=== PATIENT | female | born 1985 | race Caucasian/White ===

== ENCOUNTER 2017-04-26 10:16 | Emergency (ER) | payer OTHER ==
[2017-04-26] MEDS ORDERED: TORAdol 30 mg Injection IV ONE (10:26)
[2017-04-26] MEDS ORDERED: Sodium Chloride 0.9% 1000 ML 1,000 ML IV STA (10:26)
[2017-04-26] MEDS ORDERED: Hydromorphone 1 mg/ml Ampule IV ONE (10:26)
[2017-04-26] MEDS ORDERED: Phenergan 25 MG INJ IV ONE (10:26)
[2017-04-26] MEDS ORDERED: Flomax 0.4 MG PO STA (10:28)
--- NOTE | 2017-04-26 10:31 | ERPHSYRPT ---
- History of Present Illness Time Seen by Provider: 04/26/17 10:25 Historian: patient Exam Limitations: no limitations Physician History: The patient is a 31-year-old female with her complaining of a sudden onset of right flank pain wrapping around to her right abdomen and right groin that began about an hour ago. Last night she had a dull ache in her right lower back for which she took ibuprofen. That's back pain became much worse suddenly this morning. She was nauseated. She denies vomiting or diarrhea. She had a kidney stone one time on her left side. Her past medical history is significant for kidney stone, tubal ligation, and ADD. Timing/Duration: hour(s) (1) Activities at Onset: none Quality: sharpness, stabbing Abdominal Pain Onset Location: flank (right) Pain Radiation: RLQ, groin Severity of Pain-Max: severe Severity of Pain-Current: severe Modifying Factors: Improves With: nothing Associated Symptoms: nausea Previous symptoms: same symptoms as today Allergies/Adverse Reactions: No Known Drug Allergies Allergy (Unverified 04/26/17 10:32) Home Medications: Dextroamphetamine/Amphetamine [Adderall 30 mg Tablet] 30 mg PO DAILY 04/26/17 [ History] - Review of Systems Constitutional: No Fever, No Chills Eyes: No Symptoms Ears, Nose, & Throat: No Symptoms Respiratory: No Cough, No Dyspnea Cardiac: No Chest Pain, No Edema, No Syncope Abdominal/Gastrointestinal: Abdominal Pain, Nausea, No Vomiting, No Diarrhea Genitourinary Symptoms: No Dysuria Musculoskeletal: No Back Pain, No Neck Pain Skin: No Rash Neurological: No Dizziness, No Focal Weakness, No Sensory Changes Psychological: No Symptoms Endocrine: No Symptoms Hematologic/Lymphatic: No Symptoms Immunological/Allergic: No Symptoms All Other Systems: Reviewed and Negative - Nursing Vital Signs Nursing Vital Signs: Initial Vital Signs Temperature 97.8 F 04/26/17 10:21 Pulse Rate 96 H 04/26/17 10:21 Respiratory Rate 22 04/26/17 10:21 Blood Pressure 161/104 04/26/17 10:21 O2 Sat by Pulse Oximetry 98 04/26/17 10:21 Pain Scale Pain Intensity 6 - Physical Exam General Appearance: severe distress, alert, anxiety Eye Exam: PERRL/EOMI, eyes nml inspection Ears, Nose, Throat Exam: normal ENT inspection, pharynx normal, moist mucous membranes Neck Exam: normal inspection, non-tender, supple, full range of motion Respiratory Exam: normal breath sounds, lungs clear, No respiratory distress Cardiovascular Exam: regular rate/rhythm, normal heart sounds Gastrointestinal/Abdomen Exam: tenderness (RLQ), other (right flank tenderness) Pelvic Exam: not done Rectal Exam: not done Back Exam: CVA tenderness (right) Extremity Exam: normal inspection, normal range of motion, pelvis stable Neurologic Exam: alert, oriented x 3, cooperative, normal mood/affect, nml cerebellar function, sensation nml, No motor deficits Skin Exam: normal color, warm, dry SpO2 Interpretation: normal - CT Exams Abdomen/Pelvis CT Interpretation: Tele-radiologist Report, Other (3 to 4 mm stone at right UVJ with moderate right hydroureter per Dr Bearden.) Ordered Tests: Active Orders 24 hr Category Date Time Status IV Insertion STAT Care 04/26/17 10:26 Active Strain Urine .as ordered Care 04/26/17 12:52 Active ABDOMEN AND PELVIS W/0 CONTRAS [CT] Stat Exams 04/26/17 12:17 Completed CBC W DIFF Stat Lab 04/26/17 10:45 Completed CMP Stat Lab 04/26/17 10:45 Completed HCG QUALITATIVE,SERUM Stat Lab 04/26/17 10:45 Completed LIPASE Stat Lab 04/26/17 10:45 Completed Lactic Acid Stat Lab 04/26/17 10:50 Completed UA W/RFX UR CULTURE Stat Lab 04/26/17 10:26 Completed Medication Summary Discontinued Medications Generic Name Dose Route Start Last Admin Trade Name Dinoq PRN Reason Stop Dose Admin Hydromorphone HCl 1 mg 04/26/17 10:26 04/26/17 10:45 Hydromorphone 1 Mg/Ml Ampule IV 04/26/17 10:27 1 mg STAT ONE Administration Hydromorphone HCl Confirm 04/26/17 10:37 Hydromorphone 1 Mg/Ml Ampule Administered 04/26/17 10:38 Dose 1 mg .ROUTE .STK-MED ONE Sodium Chloride 1,000 mls @ 999 mls/hr 04/26/17 10:26 04/26/17 10:44 Sodium Chloride 0.9% 1000 Ml IV 04/26/17 11:26 999 mls/hr .Q1H1M STA Administration Sodium Chloride Confirm 04/26/17 10:37 Sodium Chloride 0.9% 1000 Ml Administered 04/26/17 10:38 Dose 1,000 mls @ ud .ROUTE .STK-MED ONE Ketorolac Tromethamine 30 mg 04/26/17 10:26 04/26/17 10:44 Toradol 30 Mg Injection IV 04/26/17 10:27 30 mg STAT ONE Administration Ketorolac Tromethamine Confirm 04/26/17 10:36 Toradol 30 Mg Injection Administered 04/26/17 10:37 Dose 30 mg .ROUTE .STK-MED ONE Promethazine HCl 25 mg 04/26/17 10:26 04/26/17 10:44 Phenergan 25 Mg Inj IV 04/26/17 10:27 25 mg STAT ONE Administration Promethazine HCl Confirm 04/26/17 10:36 Phenergan 25 Mg Inj Administered 04/26/17 10:37 Dose 25 mg .ROUTE .STK-MED ONE Tamsulosin HCl 0.4 mg 04/26/17 10:28 04/26/17 10:45 Flomax 0.4 Mg PO 04/26/17 10:29 0.4 mg DAILY STA Administration Tamsulosin HCl Confirm 04/26/17 10:37 Flomax 0.4 Mg Administered 04/26/17 10:38 Dose 0.4 mg .ROUTE .[facility] ONE Lab/Rad Data: Laboratory Result Diagrams 04/26/17 10:45 04/26/17 10:45 Laboratory Results 04/26/17 04/26/17 04/26/17 Range/Units 10:50 10:45 10:45 WBC (4.0-10.5) K/mm3 RBC (4.1-5.4) M/mm3 Hgb (12.0-16.0) gm/dl Hct (35-47) % MCV (78-100) fl MCH (26-32) pg MCHC (32-36) g/dl RDW (11.5-14.0) % Plt Count (150-450) K/mm3 MPV (6-9.5) fl Gran % (36.0-66.0) % Lymphocytes % (24.0-44.0) % Monocytes % (0.0-12.0) % Eosinophils % (0.00-5.0) % Basophils % (0.0-0.4) % Basophils # (0-0.4) Sodium 138 (136-145) mEq/L Potassium 4.1 (3.5-5.1) mEq/L Chloride 104 (98-107) mEq/L Carbon Dioxide 22.8 (21-32) mEq/L Anion Gap 15.3 H (5-15) MEQ/L BUN 8 L (9-20) mg/dL Creatinine 0.92 (0.55-1.30) mg/dl Estimated GFR > 60 ML/MIN Glucose 106 (70-110) MG/DL Lactic Acid 1.3 (0.4-2.0) Calcium 8.7 (8.5-10.1) mg/dL Total Bilirubin 0.40 (0.2-1.0) mg/dL AST 17 (15-37) U/L ALT 22 (12-78) U/L Alkaline Phosphatase 50 (46-116) U/L Serum Total Protein 7.8 (6.4-8.2) gm/dL Albumin 4.0 (3.4-5.0) g/dL Lipase 106 (73-393) U/L Serum , Qual NEGATIVE (Negative) Ur Collection Type Urine Color (YELLOW) Urine Appearance (CLEAR) Urine pH (5-6) Ur Specific [place] (1.005-1.025) Urine Protein (Negative) Urine Ketones (NEGATIVE) Urine Blood (0-5) Dioni/ul Urine Nitrite (NEGATIVE) Urine Bilirubin (NEGATIVE) Urine Urobilinogen (0-1) mg/dL Ur Leukocyte Esterase (NEGATIVE) Urine Culture Reflexed (NO) Urine Glucose (NEGATIVE) mg/dL Specimen Received 04/26/17 04/26/17 Range/Units 10:45 10:26 WBC 7.4 (4.0-10.5) K/mm3 RBC 5.04 (4.1-5.4) M/mm3 Hgb 15.1 (12.0-16.0) gm/dl Hct 43.1 (35-47) % MCV 85.5 (78-100) fl MCH 30.0 (26-32) pg MCHC 35.0 (32-36) g/dl RDW 12.4 (11.5-14.0) % Plt Count 254 (150-450) K/mm3 MPV 9.4 (6-9.5) fl Gran % 61.6 (36.0-66.0) % Lymphocytes % 26.8 (24.0-44.0) % Monocytes % 8.2 (0.0-12.0) % Eosinophils % 3.1 (0.00-5.0) % Basophils % 0.3 (0.0-0.4) % Basophils # 0.02 (0-0.4) Sodium (136-145) mEq/L Potassium (3.5-5.1) mEq/L Chloride (98-107) mEq/L Carbon Dioxide (21-32) mEq/L Anion Gap (5-15) MEQ/L BUN (9-20) mg/dL Creatinine (0.55-1.30) mg/dl Estimated GFR ML/MIN Glucose (70-110) MG/DL Lactic Acid (0.4-2.0) Calcium (8.5-10.1) mg/dL Total Bilirubin (0.2-1.0) mg/dL AST (15-37) U/L ALT (12-78) U/L Alkaline Phosphatase (46-116) U/L Serum Total Protein (6.4-8.2) gm/dL Albumin (3.4-5.0) g/dL Lipase (73-393) U/L Serum , Qual (Negative) Ur Collection Type CLEAN CATCH Urine Color YELLOW (YELLOW) Urine Appearance CLEAR (CLEAR) Urine pH 7.0 (5-6) Ur Specific [place] 1.010 (1.005-1.025) Urine Protein NEGATIVE (Negative) Urine Ketones NEGATIVE (NEGATIVE) Urine Blood NEGATIVE (0-5) Dioni/ul Urine Nitrite NEGATIVE (NEGATIVE) Urine Bilirubin NEGATIVE (NEGATIVE) Urine Urobilinogen NORMAL (0-1) mg/dL Ur Leukocyte Esterase NEGATIVE (NEGATIVE) Urine Culture Reflexed NO (NO) Urine Glucose NEGATIVE (NEGATIVE) mg/dL Specimen Received 04/26/17 1035 - Progress Progress: improved Counseled pt/family regarding: lab results, diagnosis, need for follow-up, rad results - Departure Time of Disposition: 13:28 Departure Disposition: Home Clinical Impression: Kidney stone Condition: Stable Critical Care Time: No Referrals: TYRONE ELLIS [Primary Care Provider] - Additional Instructions: You have a small kidney stone on the right side that is just about ready to pass into your bladder. You were given Toradol 30 mg, Dilaudid 1 mg, Phenergan 25 mg, and fluids by IV and you were given Flomax 0.4 mg orally in the ER. Take naproxen 500 mg 2 times a day as needed. Strain your urine, collect the stone, and take it to your family physician for analysis. Follow-up as needed. Prescriptions: Naproxen 500 mg PO BID PRN #60 tablet.
[2017-04-26] MEDS ORDERED: Phenergan 25 MG INJ ONE (10:36)
[2017-04-26] MEDS ORDERED: TORAdol 30 mg Injection ONE (10:36)
[2017-04-26] MEDS ORDERED: Hydromorphone 1 mg/ml Ampule ONE (10:37)
[2017-04-26] MEDS ORDERED: Flomax 0.4 MG ONE (10:37)
[2017-04-26] MEDS ORDERED: Sodium Chloride 0.9% 1000 ML 1,000 ML ONE (10:37)
[2017-04-26 10:55] LABS: BASOPHIL % 0.3 % (0.0-0.4); Basophil (Absolute #) 0.02 (0-0.4); Eosinophil % 3.1 % (0.00-5.0); Eosinophil (Absolute #) 0.23 (0-0.5); Granulocyte Absolute (ANC) 4.56 (1.4-6.9); Granulocytes % 61.6 % (36.0-66.0); Hematocrit 43.1 % (35-47); Hemoglobin 15.1 gm/dl (12.0-16.0); Lymphocyte (Absolute #) 1.98 (1.0-4.6); Lymphocytes % 26.8 % (24.0-44.0); Mean Cell Volume 85.5 fl (78-100); Mean Platelet Volume 9.4 fl (6-9.5); Monocyte (Absolute #) 0.61 (0.0-1.3); Monocytes % 8.2 % (0.0-12.0); Platelet Count 254 K/mm3 (150-450); Red Blood Count 5.04 M/mm3 (4.1-5.4); Red Cell Distribution Width 12.4 % (11.5-14.0); White Blood Count 7.4 K/mm3 (4.0-10.5)
[2017-04-26 10:55] LABS: Appearance CLEAR (CLEAR); Bilirubin NEGATIVE (NEGATIVE); Blood NEGATIVE Ery/ul (0-5); Glucose NEGATIVE (NEGATIVE); Ketones NEGATIVE (NEGATIVE); Leukocyte Esterase NEGATIVE (NEGATIVE); Nitrite NEGATIVE (NEGATIVE); Protein,Urine Dip NEGATIVE (Negative); Urobilinogen NORMAL mg/dL (0-1)
[2017-04-26 11:17] LABS: ALKALINE PHOSPHATASE 50 U/L (46-116); ANION GAP 15.3 MEQ/L (5-15); BLOOD UREA NITROGEN 8 mg/dL (9-20); CHLORIDE 104 mEq/L (98-107); Calcium 8.7 mg/dL (8.5-10.1); Carbon Dioxide 22.8 mEq/L (21-32); Creatinine 1 0.92 mg/dl (0.55-1.30); EST GLOMERULAR FILTRATION RATE > 60 ML/MIN; Glucose 106 MG/DL (70-110); LIPASE 106 U/L (73-393); Potassium 4.1 mEq/L (3.5-5.1); SGOT/AST 17 U/L (15-37); SGPT/ALT 22 U/L (12-78); SODIUM 138 mEq/L (136-145); Total Protein 7.8 gm/dL (6.4-8.2)
--- NOTE | 2017-04-26 12:27 | XRAY ---
Indication: Right flank pain. History of stones. Multiple contiguous axial images obtained through the abdomen and pelvis without contrast using renal stone protocol. Comparison: None Lung bases are clear. Heart is not enlarged. There is a 3-4 mm right UVJ calculus. Proximal right ureter is prominent up to 6 mm along with mild/moderate hydronephrosis consistent with obstructive uropathy. No perinephric fluid. A few calcified splenic granulomas. Noncontrasted stomach and bowel loops appear nonobstructed. There is mild diffuse scattered colonic fecal debris throughout. Normal appendix. Small cul-de-sac fluid presumed from rupture/leaking cyst. No free air. Remaining liver, gallbladder, pancreas, spleen, adrenal glands, left kidney, left ureter, bladder, uterus, and aorta appear unremarkable for noncontrast exam. Osseous structures intact. Impression: 1. 3-4 mm right UVJ calculus producing partial obstruction. 2. Small cul-de-sac fluid presumed physiologic from rupture/leaking cyst. 3. Mild fecal stasis without obstruction. CT DI 18.31
[2017-04-26 13:15] VITALS: PULSE 78
[2017-04-26 13:40] VITALS: BP 153/83; O2SAT 97
== END 2017-04-26 13:39 | disposition home or self-care (01) ==
LOC: ED 10:16
DX: N20.0 Calculus of kidney (principal)
CPT/HCPCS: 36000; 36415; 74176; 80053; 81002; 83605; 83690; 84703; 85025; 96360; 96372; 96374; 96375; 96376; 99284; J1170; J1885; J2550; A9270-GY

== ENCOUNTER 2024-07-04 16:14 | Emergency (ER) | payer OTHER ==
[2024-07-04 16:30] VITALS: RESP 18; TEMP 98.5
[2024-07-04 17:32] LABS: Basophil (Absolute #) 0.08 x10^3/uL (0.01-0.08); Eosinophil % 4.6 % (0.7-5.8); Eosinophil (Absolute #) 0.39 x10^3/uL (0.04-0.36); Hematocrit 45.1 % (34.1-44.9); Hemoglobin 15.7 g/dL (11.2-15.7); IMMATURE GRAN # 0.02 x10^3u/L (0.001-0.031); IMMATURE GRAN % 0.2 % (0.001-0.429); Lymphocyte (Absolute #) 2.16 x10^3/uL (1.18-3.74); Lymphocytes % 25.7 % (19.3-51.7); Mean Cell Volume 88.3 fL (79.4-94.8); Mean Corpuscular Hemoglobin 30.7 pg (25.6-32.2); Mean Corpuscular Hgb Concent. 34.8 g/dL (32.2-35.5); Mean Platelet Volume 10.8 fL (9.4-12.3); Monocyte (Absolute #) 0.76 x10^3/uL (0.24-0.86); Neutrophil % 59.5 % (34.0-71.1); Platelet Count 286 x10^3/uL (182-369); Red Blood Count 5.11 x10^6/uL (3.93-5.22); Red Cell Distribution Width 11.9 % (11.7-14.4); White Blood Count 8.4 x10^3/uL (3.98-10.04)
[2024-07-04] MEDS ORDERED: Sodium Chloride 0.9% 1000 ML 1,000 ML ONE (17:37)
[2024-07-04] MEDS ORDERED: solu-MEDROL ONE (17:37)
[2024-07-04] MEDS ORDERED: Sterile H2O 10 ml IJ ONE (17:37)
[2024-07-04] MEDS: solu-MEDROL 125 MG, Sterile H2O 10 ml 2 ML IV ONE (17:39)
[2024-07-04] MEDS: Sodium Chloride 0.9% 1000 ML 1,000 ML IV STA (17:39)
[2024-07-04 17:42] LABS: Appearance Clear (Clear); Bacteria None Seen /HPF (None Seen); Bilirubin Negative (Negative); Blood Negative (Negative); Epithelial Cells Few /HPF (None Seen); Glucose, Urine Negative (Negative); Hyaline Casts NONE SEEN /LPF (0-2); Ketones Negative (Negative); Leukocyte Esterase Negative (Negative); Nitrite Negative (Negative); Protein,Urine Dip Negative (Negative); WBC 0-2 /HPF (0-5)
[2024-07-04 17:53] VITALS: PULSE 68
[2024-07-04 18:08] LABS: ALBUMIN 4.3 g/dL (3.5-5.0); ANION GAP 14.5 MEQ/L (5-15); BILIRUBIN,TOTAL 0.3 mg/dL (0.2-1.3); Calcium 8.8 mg/dL (8.4-10.2); Creatinine 1 0.7 mg/dL (0.52-1.04); EST GLOMERULAR FILTRATION RATE 113.5 ML/MIN; Potassium 4.1 mmol/L (3.5-5.1); Total Protein 7.1 g/dL (6.3-8.2)
[2024-07-04 18:09] LABS: INR 0.91 (0.8-3.0); PTT 26.4 SECONDS (25.1-36.5)
[2024-07-04 18:11] VITALS: BP 135/100; O2SAT 97
[2024-07-04 18:30] LABS: HCG URINE TEST NEGATIVE (NEGATIVE)
--- NOTE | 2024-07-04 18:36 | ERPHSYRPT ---
- History of Present Illness Time Seen by Provider: 07/04/24 16:27 Source: patient Exam Limitations: no limitations Patient Subjective Stated Complaint: Pt states "I was bitten by something three days ago and Dr. Ochoa thinks it was a brown recluse nest. I have spots on my left hand, my left arm, my right eye. I am on antibiotics for that but today I am so tired." Triage Nursing Assessment: Pt presented alert and oriented X3, skin pwd. Pt ambu lates with an upright steady gait, able to speak in clear full sentences. Pt has swelling noted to left hand fourth digit, swelling noted to left upper arm, swelling noted to right lateral eye. Physician History: 38 years old female presented in the ER with complains of generalized weakness fatigue and tiredness since morning. Patient reports she was possibly bit by a spider 2 days ago in the left hand third digit, left arm, was evaluated by primary care, started on Augmentin since yesterday. Today she noticed a small area of redness in the right upper eyelid area. No fever or chills but achy feeling all over which patient describes as a flulike symptoms. Patient does not want to be checked for influenza. Denies any chest pain palpitations or shortness of breath. No abdominal pain nausea or vomiting/diarrhea. Denies any focal numbness tingling or weakness. No muscle cramping. Patient is very anxious during the whole interview. Allergies/Adverse Reactions: No Known Drug Allergies Allergy (Unverified 04/26/17 10:32) Home Medications: Amox Tr/Potass Clav. 500 mg [Augmentin 500-125 Tablet] 500 mg PO TID 07/04/24 [History] Dextroamphetamine/Amphetamine [Adderall Xr 20 mg Capsule] 20 mg PO DAILY 07/04/24 [History] Enalapril Maleate [Vasotec] 5 mg PO DAILY 07/04/24 [History] Hx Tetanus, Diphtheria Vaccination/Date Given: No Hx Influenza Vaccination/Date Given: No Hx Pneumococcal Vaccination/Date Given: No Immunizations Up to Date: No Travel Risk - International Travel Have you traveled outside of the country in past 3 weeks: No - Emerging Infectious Disease Are you exhibiting symptoms associated with any current EIDs: No - Review of Systems Constitutional: Fatigue, Weakness Eyes: No Symptoms Ears, Nose, & Throat: No Symptoms Respiratory: No Symptoms Cardiac: No Symptoms Abdominal/Gastrointestinal: No Symptoms Genitourinary Symptoms: No Symptoms Musculoskeletal: No Symptoms Skin: Skin Lesions Neurological: No Symptoms Endocrine: No Symptoms Hematologic/Lymphatic: No Symptoms Immunological/Allergic: No Symptoms - Past Medical History Pertinent Past Medical History: Yes Neurological History: No Pertinent History ENT History: No Pertinent History Cardiac History: Hypertension Other Medical History: adhd - Past Surgical History Past Surgical History: Yes Other Surgical History: c section. tubal - Female History Hx Last Menstrual Period: 06/20/2024 Hx Now: No - Social History Smoking Status: Current every day smoker How long have you smoked: years Exposure to second hand smoke: Yes Drug Use: none - Social Determinants of Health Will the patient participate in the screening: Declined to provide - Nursing Vital Signs Nursing Vital Signs: Initial Vital Signs Temperature 98.5 F 07/04/24 16:22 Pulse Rate 97 H 07/04/24 16:22 Respiratory Rate 18 07/04/24 16:22 Blood Pressure 149/100 07/04/24 16:22 O2 Sat by Pulse Oximetry 100 07/04/24 16:22 Pain Scale Pain Intensity 0 - Physical Exam General Appearance: no apparent distress, alert, anxiety Eye Exam: PERRL/EOMI, eyes nml inspection, other (Right upper lid minimal erythema) Ears, Nose, Throat Exam: normal ENT inspection, TMs normal, pharynx normal Neck Exam: normal inspection, non-tender, supple, full range of motion Respiratory Exam: normal breath sounds, lungs clear Cardiovascular Exam: regular rate/rhythm, normal heart sounds Gastrointestinal/Abdomen Exam: soft, normal bowel sounds, No tenderness Extremity Exam: normal inspection, normal range of motion Neurologic Exam: alert, oriented x 3, cooperative, nml cerebellar function, nml station & gait, sensation nml, No normal mood/affect, No motor deficits Skin Exam: normal color, other (Left hand third digit 2 areas with erythema around, broken blisters. Minimal tenderness. No increased temperature. Blister with small erythema left upper lateral arm.) SpO2 Interpretation: normal SpO2: 97 O2 Delivery: Room Air Ordered Tests: Active Orders 24 hr Category Date Time Status CBC W DIFF Stat Lab 07/04/24 17:15 Completed CK (IN-HOUSE) [CK-Creatinine Phosphokinase] Stat Lab 07/04/24 17:50 Completed CMP Stat Lab 07/04/24 17:50 Completed HCG QUALITATIVE, URINE Stat Lab 07/04/24 18:30 Completed Lactic Acid Stat Lab 07/04/24 17:18 Completed MAGNESIUM Stat Lab 07/04/24 17:50 Completed PROCALCITONIN Stat Lab 07/04/24 18:00 Received PROTIME WITH INR Stat Lab 07/04/24 18:00 Completed PTT Stat Lab 07/04/24 18:00 Completed UA W/RFX UR CULTURE Stat Lab 07/04/24 17:22 Completed Medication Summary Discontinued Medications Generic Name Dose Route Start Last Admin Trade Name Dinoq PRN Reason Stop Dose Admin Methylprednisolone Sodium 0 mg 07/04/24 17:19 07/04/24 17:39 Succinate 125 mg/ Sterile IV 07/04/24 17:20 125 mg Water 2 ml STAT ONE Administration Sodium Chloride 1,000 mls @ 999 mls/hr 07/04/24 17:19 07/04/24 17:39 Sodium Chloride 0.9% 1000 Ml IV 07/04/24 18:19 999 mls/hr .Q1H1M STA Administration Sodium Chloride Confirm 07/04/24 17:37 Sodium Chloride 0.9% 1000 Ml Administered 07/04/24 17:38 Dose 1,000 mls @ ud .ROUTE .STK-MED ONE Methylprednisolone Sodium Succinate Confirm 07/04/24 17:37 Methylprednis Sod Succ 125 Mg/2 Ml Vial Administered 07/04/24 17:38 Dose 125 mg .ROUTE .STK-MED ONE Sterile Water Confirm 07/04/24 17:37 Water For Injection,Sterile 10 Ml Vial Administered 07/04/24 17:38 Dose 10 ml IJ .STK-MED ONE Lab/Rad Data: Laboratory Result Diagrams 07/04/24 17:15 07/04/24 17:50 Laboratory Results 07/04/24 07/04/24 07/04/24 Range/Units 18:30 18:00 17:50 WBC (3.98-10.04) x10^3/uL RBC (3.93-5.22) x10^6/uL Hgb (11.2-15.7) g/dL Hct (34.1-44.9) % MCV (79.4-94.8) fL MCH (25.6-32.2) pg MCHC (32.2-35.5) g/dL RDW (11.7-14.4) % Plt Count (182-369) x10^3/uL MPV (9.4-12.3) fL Gran % (34.0-71.1) % Immature Gran % (Auto) (0.001-0.429) % Nucleat RBC Rel Count (0.00-0.2) % Eos # (Auto) (0.04-0.36) x10^3/uL Immature Gran # (Auto) (0.001-0.031) x10^3u/L Absolute Lymphs (auto) (1.18-3.74) x10^3/uL Absolute Monos (auto) (0.24-0.86) x10^3/uL Absolute Nucleated RBC (0.00-0.012) x10^3u/L Lymphocytes % (19.3-51.7) % Monocytes % (4.7-12.5) % Eosinophils % (0.7-5.8) % Basophils % (0.1-1.2) % Absolute Granulocytes (1.56-6.13) x10^3/uL Basophils # (0.01-0.08) x10^3/uL PT 10.0 (9.4-12.5) SECONDS INR 0.91 (0.8-3.0) APTT 26.4 (25.1-36.5) SECONDS Sodium (135-145) mmol/L Potassium (3.5-5.1) mmol/L Chloride (98-107) mmol/L Carbon Dioxide (22-30) mmol/L Anion Gap (5-15) MEQ/L BUN (7-17) mg/dL Creatinine (0.52-1.04) mg/dL Estimated GFR ML/MIN Glucose (74-106) mg/dL Lactic Acid (0.4-2.0) Calcium (8.4-10.2) mg/dL Magnesium (1.6-2.3) mg/dL Total Bilirubin (0.2-1.3) mg/dL AST (14-36) U/L ALT (0-35) U/L Alkaline Phosphatase (38-126) U/L Creatine Kinase 53 (30-135) U/L Serum Total Protein (6.3-8.2) g/dL Albumin (3.5-5.0) g/dL Urine Color (Yellow) Urine Appearance (Clear) Urine pH (4.6-8.0) Ur Specific [place] (1.005-1.030) Urine Protein (Negative) Urine Glucose (UA) (Negative) mg/dL Urine Ketones (Negative) Urine Blood (Negative) Urine Nitrite (Negative) Urine Bilirubin (Negative) Urine Urobilinogen (0.2) mg/dL Ur Leukocyte Esterase (Negative) U Hyaline Cast (Auto) (0-2) /LPF Urine Microscopic RBC (0-5) /HPF Urine Microscopic WBC (0-5) /HPF Ur Epithelial Cells (None Seen) /HPF Urine Bacteria (None Seen) /HPF Urine Culture Reflexed (NO) Urine HCG, Qual NEGATIVE (NEGATIVE) 07/04/24 07/04/24 07/04/24 Range/Units 17:50 17:22 17:18 WBC (3.98-10.04) x10^3/uL RBC (3.93-5.22) x10^6/uL Hgb (11.2-15.7) g/dL Hct (34.1-44.9) % MCV (79.4-94.8) fL MCH (25.6-32.2) pg MCHC (32.2-35.5) g/dL RDW (11.7-14.4) % Plt Count (182-369) x10^3/uL MPV (9.4-12.3) fL Gran % (34.0-71.1) % Immature Gran % (Auto) (0.001-0.429) % Nucleat RBC Rel Count (0.00-0.2) % Eos # (Auto) (0.04-0.36) x10^3/uL Immature Gran # (Auto) (0.001-0.031) x10^3u/L Absolute Lymphs (auto) (1.18-3.74) x10^3/uL Absolute Monos (auto) (0.24-0.86) x10^3/uL Absolute Nucleated RBC (0.00-0.012) x10^3u/L Lymphocytes % (19.3-51.7) % Monocytes % (4.7-12.5) % Eosinophils % (0.7-5.8) % Basophils % (0.1-1.2) % Absolute Granulocytes (1.56-6.13) x10^3/uL Basophils # (0.01-0.08) x10^3/uL PT (9.4-12.5) SECONDS INR (0.8-3.0) APTT (25.1-36.5) SECONDS Sodium 137 (135-145) mmol/L Potassium 4.1 (3.5-5.1) mmol/L Chloride 106 (98-107) mmol/L Carbon Dioxide 21 L (22-30) mmol/L Anion Gap 14.5 (5-15) MEQ/L BUN 11 (7-17) mg/dL Creatinine 0.70 (0.52-1.04) mg/dL Estimated GFR 113.5 ML/MIN Glucose 100 (74-106) mg/dL Lactic Acid 1.1 (0.4-2.0) Calcium 8.8 (8.4-10.2) mg/dL Magnesium 2.0 (1.6-2.3) mg/dL Total Bilirubin 0.30 (0.2-1.3) mg/dL AST 22 (14-36) U/L ALT 17 (0-35) U/L Alkaline Phosphatase 65 (38-126) U/L Creatine Kinase (30-135) U/L Serum Total Protein 7.1 (6.3-8.2) g/dL Albumin 4.3 (3.5-5.0) g/dL Urine Color Yellow (Yellow) Urine Appearance Clear (Clear) Urine pH 8.0 (4.6-8.0) Ur Specific [place] 1.020 (1.005-1.030) Urine Protein Negative (Negative) Urine Glucose (UA) Negative (Negative) mg/dL Urine Ketones Negative (Negative) Urine Blood Negative (Negative) Urine Nitrite Negative (Negative) Urine Bilirubin Negative (Negative) Urine Urobilinogen 1.0 A (0.2) mg/dL Ur Leukocyte Esterase Negative (Negative) U Hyaline Cast (Auto) NONE SEEN (0-2) /LPF Urine Microscopic RBC 6-10 A (0-5) /HPF Urine Microscopic WBC 0-2 (0-5) /HPF Ur Epithelial Cells Few (None Seen) /HPF Urine Bacteria None Seen (None Seen) /HPF Urine Culture Reflexed NO (NO) Urine HCG, Qual (NEGATIVE) 07/04/24 Range/Units 17:15 WBC 8.4 (3.98-10.04) x10^3/uL RBC 5.11 (3.93-5.22) x10^6/uL Hgb 15.7 (11.2-15.7) g/dL Hct 45.1 H (34.1-44.9) % MCV 88.3 (79.4-94.8) fL MCH 30.7 (25.6-32.2) pg MCHC 34.8 (32.2-35.5) g/dL RDW 11.9 (11.7-14.4) % Plt Count 286 (182-369) x10^3/uL MPV 10.8 (9.4-12.3) fL Gran % 59.5 (34.0-71.1) % Immature Gran % (Auto) 0.2 (0.001-0.429) % Nucleat RBC Rel Count 0.0 (0.00-0.2) % Eos # (Auto) 0.39 H (0.04-0.36) x10^3/uL Immature Gran # (Auto) 0.02 (0.001-0.031) x10^3u/L Absolute Lymphs (auto) 2.16 (1.18-3.74) x10^3/uL Absolute Monos (auto) 0.76 (0.24-0.86) x10^3/uL Absolute Nucleated RBC 0.00 (0.00-0.012) x10^3u/L Lymphocytes % 25.7 (19.3-51.7) % Monocytes % 9.0 (4.7-12.5) % Eosinophils % 4.6 (0.7-5.8) % Basophils % 1.0 (0.1-1.2) % Absolute Granulocytes 5.00 (1.56-6.13) x10^3/uL Basophils # 0.08 (0.01-0.08) x10^3/uL PT (9.4-12.5) SECONDS INR (0.8-3.0) APTT (25.1-36.5) SECONDS Sodium (135-145) mmol/L Potassium (3.5-5.1) mmol/L Chloride (98-107) mmol/L Carbon Dioxide (22-30) mmol/L Anion Gap (5-15) MEQ/L BUN (7-17) mg/dL Creatinine (0.52-1.04) mg/dL Estimated GFR ML/MIN Glucose (74-106) mg/dL Lactic Acid (0.4-2.0) Calcium (8.4-10.2) mg/dL Magnesium (1.6-2.3) mg/dL Total Bilirubin (0.2-1.3) mg/dL AST (14-36) U/L ALT (0-35) U/L Alkaline Phosphatase (38-126) U/L Creatine Kinase (30-135) U/L Serum Total Protein (6.3-8.2) g/dL Albumin (3.5-5.0) g/dL Urine Color (Yellow) Urine Appearance (Clear) Urine pH (4.6-8.0) Ur Specific [place] (1.005-1.030) Urine Protein (Negative) Urine Glucose (UA) (Negative) mg/dL Urine Ketones (Negative) Urine Blood (Negative) Urine Nitrite (Negative) Urine Bilirubin (Negative) Urine Urobilinogen (0.2) mg/dL Ur Leukocyte Esterase (Negative) U Hyaline Cast (Auto) (0-2) /LPF Urine Microscopic RBC (0-5) /HPF Urine Microscopic WBC (0-5) /HPF Ur Epithelial Cells (None Seen) /HPF Urine Bacteria (None Seen) /HPF Urine Culture Reflexed (NO) Urine HCG, Qual (NEGATIVE) - Progress Progress: improved Progress Note: 07/04/24 18:37 38 years old is evaluated in the ER for generalized weakness fatigue and tiredness with achiness all over her since morning. Patient has some insect bite on the finger and arm. Patient patient is taking Augmentin since yesterday. She has itching and burning sensation around the area of the bite. I have given her steroid shot and a bolus of fluid, on reevaluation she is feeling better. Workup showed normal white count, unremarkable chemistries, no UTI. Normal CK level and lactate. Lungs are clear to auscultation, abdomen is soft nontender with normoactive bowel sounds, do not think patient needs any other imaging. Patient is very anxious, part of her symptoms could be secondary to anxiety. She is offered influenza and COVID testing which she declined. This could be prodrome from this insect bite related. She is advised to continue with antibiotics and will give a short course of steroid to go home. Discussed signs symptoms of worsening needing return to ER which she seems understanding. Stable for discharge. Counseled pt/family regarding: lab results, diagnosis, need for follow-up Medical Desision Making - Diagnostic Testing Diagnostic test were ordered, analyzed, and reviewed by me: Yes - Risk of complications The pt has a mod risk of morbidity or mortality based on: Need for prescription drug management - Departure Departure Disposition: Home Clinical Impression: General weakness, Insect bite Condition: Stable Critical Care Time: No Referrals: TYRONE ELLIS [Primary Care Provider] - Follow up with PCP 1 day Instructions: Fatigue - ED discharge instructions Additional Instructions: Drink plenty of fluids. Take Tylenol as needed. Follow-up with primary care for reevaluation. Return to ER for increasing redness or if develop swelling or if develop fever chills etc. Prescriptions: Prednisone 20 mg [Deltasone 20 mg] 40 mg PO DAILY 5 Days #10 tablet
== END 2024-07-04 19:06 | disposition home or self-care (01) ==
LOC: ED 16:14
DX: S60.463A Insect bite (nonvenomous) of left middle finger, initial encounter (principal); S40.862A Insect bite (nonvenomous) of left upper arm, initial encounter; R53.1 Weakness; R53.83 Other fatigue; I10 Essential (primary) hypertension; Z79.52 Long term (current) use of systemic steroids; Z79.899 Other long term (current) drug therapy; Z72.0 Tobacco use
CPT/HCPCS: 36415; 80053; 81001; 81025; 82550; 83605; 83735; 84145; 85025; 85610; 85730; 96361; 96374; 99284; J2919